=== PATIENT | female | born 1945 | race Hispanic/Latino ===

== ENCOUNTER 2017-06-24 08:15 | Outpatient (CLI) | payer MEDICARE, OTHER | END 2017-06-24 08:16 | disposition home or self-care (01) | LOC: BICMAMMO 08:15 | PROVIDERS: ATTEND Family Medicine | DX: Z12.31 Encounter for screening mammogram for malignant neoplasm of breast (principal) | CPT/HCPCS: 77063; 77067 ==

== ENCOUNTER 2018-02-26 21:32 | Emergency (ER) | payer MEDICARE, OTHER ==
[2018-02-26] MEDS ORDERED: diphenhydrAMINE 25 MG CAP ONE (22:43)
[2018-02-26] MEDS ORDERED: Ibuprofen 800 MG TAB ONE (22:47)
== END 2018-02-26 22:49 | disposition home or self-care (01) ==
LOC: ERS 21:32
DX: H65.92 Unspecified nonsuppurative otitis media, left ear (principal); I10 Essential (primary) hypertension; K21.9 Gastro-esophageal reflux disease without esophagitis; Z79.899 Other long term (current) drug therapy
CPT/HCPCS: 99282

== ENCOUNTER 2018-07-10 15:08 | Outpatient (CLI) | payer MEDICARE, OTHER ==
--- NOTE | 2018-07-10 16:39 | MMO ---
Bilateral MAMMO Bilat Screen [facility]. CLINICAL HISTORY: Patient is 72 years old and is seen for screening. The patient has no family history of breast cancer. The patient has no personal history of cancer. VIEWS: The views performed were: bilateral craniocaudal with tomosynthesis and bilateral mediolateral oblique with tomosynthesis. FILMS COMPARED: The present examination has been compared to prior imaging studies performed at [facility] on 06/24/2017, at [facility] on 11/25/2014 and 02/07/2016, and at [facility] on 11/23/2013. MAMMOGRAM FINDINGS: There are scattered fibroglandular densities. There are stable benign appearing calcifications seen in both breasts. There are no suspicious masses, suspicious calcifications, or new areas of architectural distortion. IMPRESSION: THERE IS NO MAMMOGRAPHIC EVIDENCE OF MALIGNANCY. A ROUTINE FOLLOW-UP MAMMOGRAM IN 1 YEAR IS RECOMMENDED. THE RESULTS OF THIS EXAM WERE SENT TO THE PATIENT. ACR BI-RADS Category 2 - Benign finding MAMMOGRAPHY NOTE: 1. A negative mammogram report should not delay a biopsy if a dominant of clinically suspicious mass is present. 2. Approximately 10% to 15% of breast cancers are not detected by mammography. 3. Adenosis and dense breasts may obscure an underlying neoplasm.
== END 2018-07-10 15:09 | disposition home or self-care (01) ==
LOC: BICMAMMO 15:08
PROVIDERS: ATTEND Family Medicine
DX: Z12.31 Encounter for screening mammogram for malignant neoplasm of breast (principal)
CPT/HCPCS: 77063; 77067

== ENCOUNTER 2019-02-23 10:05 | Emergency (ER) | payer MEDICARE, OTHER ==
--- NOTE | 2019-02-23 10:51 | RAD ---
XR Knee Lt 4 View STANDARD HISTORY: Fall, left knee pain FINDINGS: No fracture or dislocation is identified. Degenerative changes are present.
--- NOTE | 2019-02-23 11:06 | RAD ---
Right wrist 3 views HISTORY: Fall. Wrist injury. FINDINGS: On the oblique view, there is a subtle irregular linear lucency through the scaphoid waist. It does extend to the cortical margin of the lateral aspect of the scaphoid waist, although there is no definite cortical discontinuity. Scaphoid waist is intact. Osteoarthritic changes most pronounced at the first carpometacarpal joint. No aggressive osseous erosions. IMPRESSION: Subtle linear lucency across the scaphoid waist. Please correlate closely regarding pain at the anatomic snuff box and other signs and symptoms of scaphoid waist fracture. Please consider immobilization and short-term radiographic follow-up.
--- NOTE | 2019-02-23 11:11 | RAD ---
Right knee 4 views HISTORY: Fall. Right knee injury. FINDINGS: Joint spaces are preserved. Mild tricompartmental osteophytosis. No acute fracture, disloca tion, or fluid distention of the suprapatellar bursa. Projecting over the posterior midline of the knee at the popliteal recess is a 1.2 cm triangular dyst rophic type calcification. Calcification over the arterial structures. IMPRESSION: No acute osseous abnormalities are demonstrated. Mild osteoarthritic changes. Intracapsular loose body within the posterior aspect of the knee. No evidence of significant joint ef fusion or other sign of complication. Atherosclerosis.
--- NOTE | 2019-02-23 12:14 | CT ---
CT Brain WO Con: 02/23/2019 11:26 AM CLINICAL HISTORY: Fall with head injury. IMAGING TECHNIQUE: Multiple CT images were obtained of the brain without IV contrast. COMPARISON: CT the brain without contrast dated February 07, 2014 FINDINGS: Brain: No acute infarct or hemorrhage is evident. No midline shift. Ventricles: Normal. No hydrocephalus.. Skull: Intact.. Visualized Paranasal sinuses: Clear.. Mastoid air cells:Clear. Extracranial soft tissues:Normal. IMPRESSION: No acute intracranial abnormality.
== END 2019-02-23 12:21 | disposition home or self-care (01) ==
LOC: ERS 10:05
DX: S62.001A Unspecified fracture of navicular [scaphoid] bone of right wrist, initial encounter for closed fracture (principal); S00.83XA Contusion of other part of head, initial encounter; S80.212A Abrasion, left knee, initial encounter; S80.211A Abrasion, right knee, initial encounter; W18.30XA Fall on same level, unspecified, initial encounter
CPT/HCPCS: 70450

== ENCOUNTER 2019-05-29 19:25 | Emergency (ER) | payer MEDICARE, OTHER ==
--- NOTE | 2019-05-29 20:35 | CT ---
EXAM: CT brain without contrast HISTORY: Fall with head trauma COMPARISON: 02/23/2019 TECHNIQUE: Multiple contiguous axial images were obtained and a CT of the brain without contrast. FINDINGS: The brain is normal in morphology and attenuation without focal lesions or confluent areas of infarction. There is no evidence of hydrocephalus, intracranial hemorrhage, or extra-axial fluid collection. The calvarium and overlying soft tissues are unremarkable. The visualized paranasal sinuses and masto id air cells are well aerated. IMPRESSION: No evidence of acute intracranial abnormality
== END 2019-05-29 20:39 | disposition home or self-care (01) ==
LOC: MERGE 19:25 → ERS 19:25
DX: S09.90XA Unspecified injury of head, initial encounter (principal); E78.5 Hyperlipidemia, unspecified; I10 Essential (primary) hypertension; Z79.899 Other long term (current) drug therapy; W18.30XA Fall on same level, unspecified, initial encounter; W22.8XXA Striking against or struck by other objects, initial encounter
CPT/HCPCS: 70450

== ENCOUNTER 2019-11-17 16:25 | Emergency (ER) | payer MEDICARE, OTHER | END 2019-11-17 17:55 | disposition home or self-care (01) | LOC: ERS 16:25 | DX: K12.0 Recurrent oral aphthae (principal); K21.9 Gastro-esophageal reflux disease without esophagitis; I10 Essential (primary) hypertension | CPT/HCPCS: 99282 ==

== ENCOUNTER 2020-07-02 22:21 | Observation (INO) | payer MEDICARE, OTHER ==
[2020-07-02 23:20] LABS: #Basophils 0.1 thou/uL (0.0-0.2); #Eosinphils 0.1 thou/uL (0.0-0.7); #Lymphocytes 3.1 thou/uL (1.20-3.40); #Monocytes 0.6 thou/uL (0.11-0.59); #Neutrophils 3.8 thou/uL (1.40-6.50); %Basophils 1.1 % (0.0-1.0); %Eosinophils 1.4 % (0.0-10.0); %Lymphocytes 40.6 % (21.0-51.0); %Monocytes 7.3 % (0.0-10.0); %Neutrophils 49.6 % (42.0-75.0); Hemoglobin 14.1 g/dL (12.0-16.0); Mean Corpuscular HGB CONC 33.3 g/dL (32.0-36.0); Mean Corpuscular Hemoglobin 30.9 pg (27.0-31.0); Mean Corpuscular Volume 92.7 fL (78.0-98.0); Platelet Count 289 thou/uL (130-400); RBC Distribution Width 11.6 % (11.5-14.5); Red Blood Cell (RBC) Count 4.56 mill/uL (4.20-5.40); White Blood Cell (WBC) Count 7.8 thou/uL (4.8-10.8)
[2020-07-02 23:47] LABS: ALT (SGPT) 17 U/L (8-55); AST (SGOT) 18 U/L (5-34); Albumin 4.2 g/dL (3.4-4.8); Alkaline Phosphatase 79 U/L (40-110); Anion Gap 15 mmol/L (10-20); BUN (Urea Nitrogen) 14 mg/dL (9.8-20.1); Bilirubin, Total 0.2 mg/dL (0.2-1.2); Calc. Creatinine Clearance 0 mL/min (70-130); Calcium 9.4 mg/dL (7.8-10.44); Carbon Dioxide 24 mmol/L (23-31); Chloride 104 mmol/L (98-107); Glucose 112 mg/dL (83-110); Potassium 3.7 mmol/L (3.5-5.1); Protein, Total 7.2 g/dL (5.8-8.1); Sodium 139 mmol/L (136-145)
[2020-07-03] MEDS ORDERED: Nitroglycerin 0.4 MG TAB (25 Tab Bottle) SL PRN (02:00)
[2020-07-03] MEDS ORDERED: Acetaminophen 325 MG TAB PO PRN (02:00)
[2020-07-03 02:47] LABS: Hemoglobin A1c 6.2 % (4.0-6.0)
[2020-07-03 03:09] LABS: Troponin I Less than 0.010 ng/mL (< 0.028)
[2020-07-03 03:14] LABS: Cardiac Risk 4.3 (Less than 4.5)
[2020-07-03 04:24] VITALS: BMI 27.4
[2020-07-03] MEDS ORDERED: HumaLOG 300 UNITS/3 ML VIAL SC PRN ×2 (04:38)
[2020-07-03] MEDS ORDERED: Dextrose 5% in Water 1,000 ML IV PRN (04:38)
[2020-07-03] MEDS ORDERED: Dextrose 50% Abboject 50 ML SYRINGE SLOW IVP PRN (04:38)
[2020-07-03 05:34] LABS: Troponin I 0.018 ng/mL (< 0.028)
[2020-07-03] MEDS ORDERED: Calcium Carbonate 600 MG + Vit D TAB PO SCH (08:00)
[2020-07-03 08:07] LABS: SARS-CoV-2 NAA Rapid Test Not Detected (NotDetected)
[2020-07-03] MEDS ORDERED: Gabapentin 300 MG CAP PO SCH (09:00)
[2020-07-03] MEDS ORDERED: Cyanocobalamin (Vitamin B-12) 1,000 MCG TAB PO SCH (09:00)
[2020-07-03] MEDS ORDERED: Enoxaparin Sodium 40 MG/0.4 ML SYRINGE SC SCH (09:00)
[2020-07-03] MEDS ORDERED: Lisinopril 10 MG TAB PO SCH (09:00)
[2020-07-03] MEDS ORDERED: ADENOSINE 60 MG/20 ML VIAL ONE (11:54)
[2020-07-03 16:44] VITALS: BP 173/73; TEMP 97.4
[2020-07-03] MEDS ORDERED: Atorvastatin Calcium 40 MG TAB PO SCH (21:00)
[2020-07-03] MEDS ORDERED: Fish Oil 1,000 MG CAP PO SCH (21:00)
== END 2020-07-03 17:00 | disposition home or self-care (01) ==
LOC: ERS 22:21 → 2SW 07-03 01:22
PROVIDERS: ADMIT Family Medicine; ATTEND Family Medicine
DX: R07.89 Other chest pain (principal); E11.9 Type 2 diabetes mellitus without complications; E78.5 Hyperlipidemia, unspecified; I10 Essential (primary) hypertension; K21.9 Gastro-esophageal reflux disease without esophagitis; M19.90 Unspecified osteoarthritis, unspecified site; M48.02 Spinal stenosis, cervical region; N39.3 Stress incontinence (female) (male); I25.10 Atherosclerotic heart disease of native coronary artery without angina pectoris; Z66 Do not resuscitate; Z79.02 Long term (current) use of antithrombotics/antiplatelets; Z79.84 Long term (current) use of oral hypoglycemic drugs; Z79.899 Other long term (current) drug therapy; Z88.6 Allergy status to analgesic agent; Z20.822 Contact with and (suspected) exposure to COVID-19
CPT/HCPCS: 0240U; 71045; 78452; 80053; 80061; 82962; 83036; 84443; 84484 ×3; 85025; 85379; 93005; 93017; 99285; A9500; 36415; 36416; 96372; G0378; J0153; J1650

== ENCOUNTER 2020-07-17 17:15 | Inpatient (IN) | payer MEDICARE, OTHER ==
[~2020-07-17 17:15] MED LIST: Iopamidol-370 76% 500 ML 1 ML ONE
[2020-07-17 18:02] LABS: #Neutrophils 7.1 thou/uL (1.40-6.50); %Basophils 0.2 % (0.0-1.0); %Eosinophils 0.1 % (0.0-10.0); %Lymphocytes 11.3 % (21.0-51.0); %Monocytes 10.4 % (0.0-10.0); Hemoglobin 13.7 g/dL (12.0-16.0); Mean Corpuscular HGB CONC 33.7 g/dL (32.0-36.0); Mean Corpuscular Hemoglobin 31.2 pg (27.0-31.0); Mean Corpuscular Volume 92.7 fL (78.0-98.0); Mean Platelet Volume 7.3 fL (7.4-10.4); Platelet Count 229 thou/uL (130-400); RBC Distribution Width 11.7 % (11.5-14.5); Red Blood Cell (RBC) Count 4.41 mill/uL (4.20-5.40); White Blood Cell (WBC) Count 9.1 thou/uL (4.8-10.8)
[2020-07-17] MEDS ORDERED: Acetaminophen 500 MG TAB ONE (18:05)
[2020-07-17 18:22] LABS: ALT (SGPT) 19 U/L (8-55); AST (SGOT) 15 U/L (5-34); Albumin 3.8 g/dL (3.4-4.8); Alkaline Phosphatase 73 U/L (40-110); Anion Gap 15 mmol/L (10-20); BUN (Urea Nitrogen) 12 mg/dL (9.8-20.1); Bilirubin, Total 0.6 mg/dL (0.2-1.2); Calc. Creatinine Clearance 0 mL/min (70-130); Calcium 9.2 mg/dL (7.8-10.44); Carbon Dioxide 23 mmol/L (23-31); Chloride 99 mmol/L (98-107); Globulin 3.3 g/dL (2.4-3.5); Glucose 165 mg/dL (83-110); Lipase 11 U/L (8-78); Potassium 4.2 mmol/L (3.5-5.1); Protein, Total 7.1 g/dL (5.8-8.1); Sodium 133 mmol/L (136-145)
[2020-07-17] MEDS ORDERED: Vancomycin 1.5 GRAM/300 ML BAG 1.5 GM in Premix Bag 1 BAG IVPB SCH (18:30)
[2020-07-17] MEDS ORDERED: Cefepime 2 GM VIAL ONE (19:03)
[2020-07-17 19:52] LABS: Bilirubin Negative (Negative); Blood, Urine Negative (Negative); Clarity Clear (Clear); Glucose, Urine (Dipstick) Normal (Negative); Ketone, Urine Negative (Negative); Leukocyte Negative Leu/uL (Negative); Nitrite Negative (Negative); Protein, Urine (Dipstick) Negative (Neg-Trace); Specific Gravity, Urine 1.019 (1.002-1.036); Urobilinogen Normal mg/dL (Less than 2); pH, Urine 7.5 (5.0-9.0)
[2020-07-17 20:31] LABS: SARS-CoV-2 NAA Rapid Test Not Detected (NotDetected)
[2020-07-17] MEDS ORDERED: Enoxaparin Sodium 60 MG/0.6 ML SYRINGE ONE (21:14)
[2020-07-17] MEDS ORDERED: Ondansetron PF 4 MG/2 ML Vial IVP PRN (23:30)
[2020-07-17] MEDS ORDERED: Ondansetron ODT 4 MG TAB SL PRN (23:30)
[2020-07-17] MEDS ORDERED: Acetaminophen 325 MG TAB PO PRN (23:30)
[2020-07-17] MEDS ORDERED: Senokot S 8.6-50 MG TAB PO PRN (23:31)
[2020-07-17] MEDS ORDERED: Bisacodyl 5 MG TAB PO PRN (23:31)
[2020-07-17] MEDS ORDERED: Calcium Carbonate 500 MG ChewTAB PO PRN (23:31)
[2020-07-17] MEDS ORDERED: Bisacodyl 10 MG SUPP PR PRN (23:31)
[2020-07-17 23:54] VITALS: BMI 26.5
[2020-07-18] MEDS ORDERED: Dextrose 50% Abboject 50 ML SYRINGE SLOW IVP PRN (00:32)
[2020-07-18] MEDS ORDERED: HumaLOG 300 UNITS/3 ML VIAL SC PRN (00:32)
[2020-07-18] MEDS ORDERED: Dextrose 5% in Water 1,000 ML IV PRN (00:32)
[2020-07-18 04:14] LABS: #Lymphocytes 1.2 thou/uL (1.20-3.40); #Monocytes 0.9 thou/uL (0.11-0.59); #Neutrophils 7.8 thou/uL (1.40-6.50); %Basophils 0.1 % (0.0-1.0); %Eosinophils 0.1 % (0.0-10.0); %Lymphocytes 12.2 % (21.0-51.0); %Monocytes 9.4 % (0.0-10.0); %Neutrophils 78.2 % (42.0-75.0); Hemoglobin 13.1 g/dL (12.0-16.0); Mean Corpuscular HGB CONC 33.2 g/dL (32.0-36.0); Mean Corpuscular Hemoglobin 30.5 pg (27.0-31.0); Mean Platelet Volume 7.1 fL (7.4-10.4); Platelet Count 248 thou/uL (130-400); RBC Distribution Width 11.8 % (11.5-14.5); Red Blood Cell (RBC) Count 4.28 mill/uL (4.20-5.40); White Blood Cell (WBC) Count 9.9 thou/uL (4.8-10.8)
[2020-07-18 04:19] LABS: Hemoglobin A1c 6.2 % (4.0-6.0)
[2020-07-18 04:48] LABS: Anion Gap 14 mmol/L (10-20); BUN (Urea Nitrogen) 10 mg/dL (9.8-20.1); Calc. Creatinine Clearance 69 mL/min (70-130); Calcium 8.8 mg/dL (7.8-10.44); Carbon Dioxide 21 mmol/L (23-31); Chloride 103 mmol/L (98-107); Glucose 138 mg/dL (83-110); Potassium 3.8 mmol/L (3.5-5.1); Sodium 134 mmol/L (136-145)
[2020-07-18] MEDS: Enoxaparin Sodium 80 MG/0.8 ML SYRINGE SC SCH ×2 (08:50→20:00)
[2020-07-18] MEDS: Cyanocobalamin (Vitamin B-12) 1,000 MCG TAB PO SCH (08:50)
[2020-07-18] MEDS: metFORMIN 500 MG TAB PO SCH (08:50)
[2020-07-18] MEDS: Calcium Carbonate 600 MG + Vit D TAB PO SCH (08:50)
[2020-07-18] MEDS: Clopidogrel Bisulfate 75 MG TAB PO SCH (08:50)
[2020-07-18] MEDS ORDERED: Enoxaparin Sodium 40 MG/0.4 ML SYRINGE SC SCH (09:00)
[2020-07-18] MEDS ORDERED: Cefepime 2 GM in Sodium Chloride 0.9% 100 ML IVPB SCH (09:00)
[2020-07-18 10:30] LABS: INR-International Normal Ratio 1.1; PTT 49.4 sec (22.9-36.1); Prothrombin Time 14.5 sec (12.0-14.7)
[2020-07-18] MEDS: Acetaminophen 325 MG TAB PO PRN ×2 (11:39→20:00)
[2020-07-18 18:10] LABS: Complement-C4 40.5 mg/dL (15-57)
[2020-07-18] MEDS: Fish Oil 1,000 MG CAP PO SCH (19:59)
[2020-07-18] MEDS: Atorvastatin Calcium 40 MG TAB PO SCH (19:59)
[2020-07-18] MEDS ORDERED: Vancomycin 1 GM in Premix Bag 1 BAG IVPB SCH (20:00)
[2020-07-19 04:20] LABS: #Eosinphils 0.1 thou/uL (0.0-0.7); #Lymphocytes 1.7 thou/uL (1.20-3.40); #Monocytes 1.1 thou/uL (0.11-0.59); #Neutrophils 6.5 thou/uL (1.40-6.50); %Basophils 0.3 % (0.0-1.0); %Eosinophils 0.7 % (0.0-10.0); %Lymphocytes 18.5 % (21.0-51.0); %Monocytes 11.9 % (0.0-10.0); %Neutrophils 68.6 % (42.0-75.0); Hemoglobin 12.7 g/dL (12.0-16.0); Mean Corpuscular HGB CONC 33.2 g/dL (32.0-36.0); Mean Corpuscular Hemoglobin 30.7 pg (27.0-31.0); Mean Corpuscular Volume 92.4 fL (78.0-98.0); Platelet Count 240 thou/uL (130-400); RBC Distribution Width 11.5 % (11.5-14.5); Red Blood Cell (RBC) Count 4.12 mill/uL (4.20-5.40); White Blood Cell (WBC) Count 9.5 thou/uL (4.8-10.8)
[2020-07-19 04:40] LABS: Anion Gap 14 mmol/L (10-20); BUN (Urea Nitrogen) 11 mg/dL (9.8-20.1); Calc. Creatinine Clearance 66 mL/min (70-130); Calcium 8.9 mg/dL (7.8-10.44); Carbon Dioxide 23 mmol/L (23-31); Chloride 102 mmol/L (98-107); Glucose 110 mg/dL (83-110); Potassium 3.7 mmol/L (3.5-5.1); Sodium 135 mmol/L (136-145)
[2020-07-19] MEDS: Cyanocobalamin (Vitamin B-12) 1,000 MCG TAB PO SCH (08:15)
[2020-07-19] MEDS: Calcium Carbonate 600 MG + Vit D TAB PO SCH (08:15)
[2020-07-19] MEDS: Clopidogrel Bisulfate 75 MG TAB PO SCH (08:15)
[2020-07-19] MEDS: Enoxaparin Sodium 80 MG/0.8 ML SYRINGE SC SCH ×2 (08:15→20:09)
[2020-07-19] MEDS: metFORMIN 500 MG TAB PO SCH (08:18)
[2020-07-19] MEDS ORDERED: Iopamidol-370 76% 500 ML 1 ML ONE (08:50)
[2020-07-19 09:37] LABS: Platelet Count 256 thou/uL (130-400)
[2020-07-19] MEDS ORDERED: Lisinopril 20 MG TAB PO SCH (10:15)
[2020-07-19] MEDS: Atorvastatin Calcium 40 MG TAB PO SCH (20:10)
[2020-07-19] MEDS: Fish Oil 1,000 MG CAP PO SCH (20:10)
[2020-07-20 04:53] LABS: Hemoglobin 12.4 g/dL (12.0-16.0); Red Blood Cell (RBC) Count 4.24 mill/uL (4.20-5.40); White Blood Cell (WBC) Count 6.5 thou/uL (4.8-10.8)
[2020-07-20 04:54] LABS: #Basophils 0.1 thou/uL (0.0-0.2); #Eosinphils 0.1 thou/uL (0.0-0.7); #Lymphocytes 1.7 thou/uL (1.20-3.40); #Monocytes 0.8 thou/uL (0.11-0.59); #Neutrophils 3.9 thou/uL (1.40-6.50); %Eosinophils 1.6 % (0.0-10.0); %Lymphocytes 26.3 % (21.0-51.0); %Monocytes 11.6 % (0.0-10.0); %Neutrophils 59.6 % (42.0-75.0); Mean Corpuscular HGB CONC 31.8 g/dL (32.0-36.0); Mean Corpuscular Hemoglobin 29.3 pg (27.0-31.0); Mean Corpuscular Volume 92.3 fL (78.0-98.0); Mean Platelet Volume 7.4 fL (7.4-10.4); Platelet Count 280 thou/uL (130-400); RBC Distribution Width 11.4 % (11.5-14.5)
[2020-07-20 05:12] LABS: Anion Gap 14 mmol/L (10-20); BUN (Urea Nitrogen) 14 mg/dL (9.8-20.1); Calc. Creatinine Clearance 66 mL/min (70-130); Calcium 8.9 mg/dL (7.8-10.44); Carbon Dioxide 22 mmol/L (23-31); Chloride 102 mmol/L (98-107); Glucose 102 mg/dL (83-110); Potassium 3.7 mmol/L (3.5-5.1); Sodium 134 mmol/L (136-145)
[2020-07-20] MEDS: Calcium Carbonate 600 MG + Vit D TAB PO SCH (08:47)
[2020-07-20] MEDS: Clopidogrel Bisulfate 75 MG TAB PO SCH (08:48)
[2020-07-20] MEDS: metFORMIN 500 MG TAB PO SCH (08:48)
[2020-07-20] MEDS: Cyanocobalamin (Vitamin B-12) 1,000 MCG TAB PO SCH (08:48)
[2020-07-20] MEDS ORDERED: Lisinopril 20 MG TAB PO SCH (09:00)
[2020-07-20 17:03] VITALS: BP 136/60; TEMP 97.5
== END 2020-07-20 17:00 | disposition home health service (06) | DRG 699 ==
LOC: ERS 17:15 → 2NO 21:43
PROVIDERS: ADMIT Family Medicine; ATTEND Family Medicine
DX: I70.1 Atherosclerosis of renal artery (principal); N28.0 Ischemia and infarction of kidney; K21.9 Gastro-esophageal reflux disease without esophagitis; E11.9 Type 2 diabetes mellitus without complications; E78.5 Hyperlipidemia, unspecified; M48.02 Spinal stenosis, cervical region; N39.3 Stress incontinence (female) (male); M19.90 Unspecified osteoarthritis, unspecified site; Z66 Do not resuscitate; Z79.84 Long term (current) use of oral hypoglycemic drugs; Z90.49 Acquired absence of other specified parts of digestive tract; Z98.42 Cataract extraction status, left eye; Z83.3 Family history of diabetes mellitus; Z79.02 Long term (current) use of antithrombotics/antiplatelets
CPT/HCPCS: 0240U; 36415; 36416; 71045; 74174; 74177; 76770; 80048; 80053; 81003; 82550; 83036; 83605; 83615; 83690; 84145; 84443; 84484; 85025; 85610; 85652; 85730; 86140; 86160; 87040; 87086; 93005; 93306; 93975; 96365; 96372; J0692; J1650; J1815; J3370; J3490; Q9967

== ENCOUNTER 2020-11-08 13:39 | Outpatient (CLI) | payer MEDICARE, OTHER | END 2020-11-08 13:40 | disposition home or self-care (01) | LOC: BICMAMMO 13:39 | PROVIDERS: ATTEND Family Medicine | DX: Z12.31 Encounter for screening mammogram for malignant neoplasm of breast (principal) | CPT/HCPCS: 77063; 77067 ==

== ENCOUNTER 2021-11-17 11:34 | Outpatient (CLI) | payer MEDICARE, OTHER | END 2021-11-17 11:35 | disposition home or self-care (01) | LOC: BICMAMMO 11:34 | PROVIDERS: ATTEND Family Medicine | DX: Z12.31 Encounter for screening mammogram for malignant neoplasm of breast (principal) | CPT/HCPCS: 77063; 77067 ==

== ENCOUNTER 2023-08-08 17:32 | Emergency (ER) | payer MEDICARE, OTHER ==
[2023-08-08 18:16] LABS: #Basophils 0.04 10x3/uL (0.0-0.2); %Basophils 0.7 % (0.0-1.0); %Eosinophils 1.3 % (0.0-10.0); %Lymphocytes 34.5 % (21.0-51.0); %Monocytes 6.9 % (0.0-10.0); %Neutrophils 56.3 % (42.0-75.0); Hematocrit 39.5 % (36.0-47.0); Hemoglobin 13.2 g/dL (12.0-16.0); Mean Corpuscular HGB CONC 33.4 g/dL (32.0-36.0); Mean Corpuscular Hemoglobin 31.1 pg (27.0-31.0); Mean Corpuscular Volume 93.2 fL (78.0-98.0); Mean Platelet Volume 9.5 fL (7.4-10.4); Platelet Count 288 10x3/uL (130-400); RBC Distribution Width 13.1 % (11.5-14.5); Red Blood Cell (RBC) Count 4.24 mill/uL (4.20-5.40)
[2023-08-08 18:35] LABS: Troponin I Less than 0.010 ng/mL (< 0.028)
[2023-08-08 18:36] LABS: ALT (SGPT) 14 U/L (8-55); AST (SGOT) 18 U/L (5-34); Albumin 3.6 g/dL (3.4-4.8); Alkaline Phosphatase 66 U/L (40-110); Anion Gap 15 mmol/L (10-20); BUN (Urea Nitrogen) 17 mg/dL (9.8-20.1); Bilirubin, Total 0.3 mg/dL (0.2-1.2); Calc. Creatinine Clearance 0 mL/min (70-130); Calcium 9.2 mg/dL (7.8-10.44); Carbon Dioxide 23 mmol/L (23-31); Chloride 105 mmol/L (98-107); Estimated GFR 75; Glucose 163 mg/dL (83-110); Lipase 23 U/L (8-78); Potassium 3.8 mmol/L (3.5-5.1); Protein, Total 6.6 g/dL (5.8-8.1); Sodium 139 mmol/L (136-145)
[2023-08-08] MEDS ORDERED: HYDROcodone/Acetaminophen 10/325 mg Tablet ONE (19:02)
== END 2023-08-08 20:02 | disposition home or self-care (01) ==
LOC: ERS 17:32
DX: S70.01XD Contusion of right hip, subsequent encounter (principal); I10 Essential (primary) hypertension; E11.9 Type 2 diabetes mellitus without complications; E78.5 Hyperlipidemia, unspecified; Z79.84 Long term (current) use of oral hypoglycemic drugs; Z79.899 Other long term (current) drug therapy; K21.9 Gastro-esophageal reflux disease without esophagitis; W19.XXXD Unspecified fall, subsequent encounter
CPT/HCPCS: 36415; 36416; 71045; 72170; 72192; 80053; 83690; 84484; 85025; 93005

== ENCOUNTER 2023-12-09 13:10 | Outpatient (CLI) | payer MEDICARE, OTHER | END 2023-12-09 13:11 | disposition home or self-care (01) | LOC: BICMAMMO 13:10 | PROVIDERS: ATTEND Family Medicine | DX: Z12.31 Encounter for screening mammogram for malignant neoplasm of breast (principal) | CPT/HCPCS: 77063; 77067 ==

== ENCOUNTER 2024-12-09 08:00 | Outpatient (CLI) | payer MEDICARE | END 2024-12-09 12:41 | disposition home or self-care (01) | LOC: BICMAMMO 08:00 | PROVIDERS: ATTEND Family Medicine | DX: Z12.31 Encounter for screening mammogram for malignant neoplasm of breast (principal); Z91.89 Other specified personal risk factors, not elsewhere classified | CPT/HCPCS: 77063; 77067 ==